=== PATIENT | male | born 1970 | race Caucasian/White ===

== ENCOUNTER → 2017-09-27 | Outpatient (CLI) | payer MEDICARE ==
[2017-09-27 14:20] LABS: BASOPHIL # 0.1 TH/MM3 (0-0.2); BASOPHIL % 0.6 % (0.0-2.0); EOSINOPHIL # 0.2 TH/MM3 (0-0.4); EOSINOPHIL % 2.3 % (0.0-4.0); HEMATOCRIT 46.2 % (39.0-51.0); HEMOGLOBIN 15.1 GM/DL (13.0-17.0); LYMPH % 27.8 % (9.0-44.0); LYMPHOCYTE # 2.7 TH/MM3 (1.0-4.8); MEAN CELL VOLUME 71.4 FL (80.0-100.0); MEAN CORPUSCULAR HEMOGLOBIN 23.4 PG (27.0-34.0); MEAN CORPUSCULAR HGB CONC 32.7 % (32.0-36.0); MEAN PLATELET VOLUME 8.3 FL (7.0-11.0); MONO % 7.3 % (0.0-8.0); MONOCYTE # 0.7 TH/MM3 (0-0.9); PLATELET COUNT 234 TH/MM3 (150-450); RED BLOOD COUNT 6.47 MIL/MM3 (4.50-5.90); RED CELL DISTRIBUTION WIDTH 15.9 % (11.6-17.2); WHITE BLOOD COUNT 9.7 TH/MM3 (4.0-11.0)
[2017-09-27 14:33] LABS: AST (GOT) 27 U/L (15-37); BLOOD UREA NITROGEN 17 MG/DL (7-18); CALCIUM 9.1 MG/DL (8.5-10.1); CHLORIDE 104 MEQ/L (98-107); CREATININE 0.94 MG/DL (0.60-1.30); GLOMERULAR FILTRATION RATE 85 ML/MIN (>89); GLUCOSE,FASTING 106 MG/DL (74-99); SODIUM (NA) 140 MEQ/L (136-145)
[2017-09-27 14:34] LABS: ALT (GPT) 32 U/L (12-78); CHOLESTEROL 183 MG/DL (120-200); TRIGLYCERIDES 151 MG/DL (42-150)
[2017-09-27 14:44] LABS: ALKALINE PHOSPHATASE 106 U/L (45-117); CHOLESTEROL/ HDL RATIO 4.18 RATIO; HDL CHOLESTEROL 43.7 MG/DL (40.0-60.0); LDL CHOLESTEROL 109 MG/DL (0-99); THYROXINE (T4) 6.8 MCG/DL (4.5-12.1); TOTAL BILIRUBIN ADULT 0.7 MG/DL (0.2-1.0); TOTAL PROTEIN 8.4 GM/DL (6.4-8.2)
[2017-09-27 22:17] LABS: HEMOGLOBIN A1C 6.5 % (4.3-6.0)
== END ==
LOC: PLAB 10:47
PROVIDERS: ATTEND Internal Medicine Interventional Cardiology
DX: R60.9 Edema, unspecified (principal); I50.9 Heart failure, unspecified; I11.9 Hypertensive heart disease without heart failure; G47.33 Obstructive sleep apnea (adult) (pediatric); R06.02 Shortness of breath; Z13.220 Encounter for screening for lipoid disorders; Z13.1 Encounter for screening for diabetes mellitus
CPT/HCPCS: 36415; 80053; 80061; 83036; 84436; 84443; 85025